=== PATIENT | female | born 1990 | race Hispanic/Latino ===

== ENCOUNTER 2020-05-23 13:30 | Inpatient (IN) | payer BC, MEDICAID ==
[~2020-05-23] VITALS: Ht 152.4 cm; Wt 85.9 kg
[2020-05-23] MEDS ORDERED: ONDANSETRON HCL 4 MG/2 ML VIAL ONE (14:01)
[2020-05-23] MEDS ORDERED: KETOROLAC TROMETHAMINE 30MG/ML ONE (14:02)
[2020-05-23 14:05] LABS: BASOPHILS % (AUTO) 0.1 % (0.0-5.0); EOSINOPHILS % (AUTO) 0.7 % (0.0-8.0); HEMATOCRIT 40.3 % (36-48); LYMPHOCYTES % (AUTO) 16.2 % (21.0-51.0); MEAN CORPUSCULAR HEMOGLOBIN 26.1 pg (27.0-33.0); MEAN CORPUSCULAR VOLUME 79.2 fL (79-99); MONOCYTES % (AUTO) 5.1 % (3.0-13.0); NEUTROPHILS % (AUTO) 77.4 % (40.0-77.0); PLATELET COUNT (AUTO) 281 K/uL (130-400); RED BLOOD CELL COUNT(AUTO) 5.09 MIL/uL (4.00-5.50); RED CELL DISTRIBUTION WIDTH 13.7 % (11.0-15.5); WHITE BLOOD COUNT (AUTO) 14.1 K/uL (4.8-10.8)
[2020-05-23 14:06] LABS: APPEARANCE,URINE CLEAR (CLEAR); BILIRUBIN,URINE NEGATIVE (NEGATIVE); COLOR,URINE YELLOW (YELLOW); GLUCOSE, URINE (UA) NEGATIVE (NEGATIVE); KETONES,URINE NEGATIVE (NEGATIVE); LEUKOCYTE ESTERASE ,URINE NEGATIVE (NEGATIVE); NITRATE,URINE NEGATIVE (NEGATIVE); OCCULT BLOOD,URINE NEGATIVE (NEGATIVE); PH,URINE 5.5 (5.0-8.0); PROTEIN,URINE TRACE mg/dL (NEGATIVE); UROBILINOGEN,URINE 0.2 mg/dL (0.2-1.0)
[2020-05-23 14:16] LABS: CREATININE 0.5 mg/dL (0.5-1.5); POTASSIUM 3.9 mmol/L (3.5-5.1)
[2020-05-23 14:19] LABS: BACTERIA,URINE Few /HPF (None Seen); RBC,URINE 0-1 /HPF (0-1); SQUAMOUS EPITHELIAL CELL,UR Few /HPF (0-2); WBC,URINE 0-1 /HPF (0-1)
[2020-05-23 14:21] LABS: BILIRUBIN,TOTAL 0.2 mg/dL (0.2-1.0); TOTAL PROTEIN, SERUM 8.4 g/dL (6.0-8.3)
[2020-05-23] MEDS ORDERED: ZOSYN 3.375GM+NS 50ML 50 ML IV ONE ×2 (15:40→22:31)
[2020-05-23] MEDS ORDERED: LACTULOSE 20 GM/30 ML UDCUP PO PRN (16:45)
[2020-05-23] MEDS ORDERED: ACETAMINOPHEN 325 MG TAB PO PRN ×2 (16:45)
[2020-05-23] MEDS ORDERED: MEPERIDINE-PF 50 MG/ML SYG IVP PRN (17:00)
[2020-05-23] MEDS ORDERED: MEPERIDINE-PF 25 MG/ML SYG ONE (18:41)
[2020-05-23] MEDS ORDERED: FAMOTIDINE/PF 20 MG/2 ML VIAL IV ONE (22:31)
[2020-05-24 04:20] VITALS: BP 134/76
[2020-05-24] MEDS: ZOSYN 3.375GM+NS 50ML 50 ML IV SCH ×4 (04:27→20:52)
[2020-05-24] MEDS: SODIUM CHLORIDE 0.9% 1000ML 1,000 ML IV SCH ×4 (04:27→20:53)
[2020-05-24] MEDS: FAMOTIDINE/PF 20 MG/2 ML VIAL IV SCH ×3 (04:27→20:51)
[2020-05-24] MEDS: INSULIN HUMULIN R 100 UNIT/ML 3ML SQ SCH ×4 (05:55→20:52)
[2020-05-24 06:14] LABS: BASOPHILS % (AUTO) 0.2 % (0.0-5.0); EOSINOPHILS % (AUTO) 1.3 % (0.0-8.0); HEMATOCRIT 35.8 % (36-48); LYMPHOCYTES % (AUTO) 22.7 % (21.0-51.0); MONOCYTES % (AUTO) 5.6 % (3.0-13.0); NEUTROPHILS % (AUTO) 69.7 % (40.0-77.0); PLATELET COUNT (AUTO) 257 K/uL (130-400); RED BLOOD CELL COUNT(AUTO) 4.53 MIL/uL (4.00-5.50); WHITE BLOOD COUNT (AUTO) 11.4 K/uL (4.8-10.8)
[2020-05-24 06:32] LABS: ALBUMIN 3.3 g/dL (3.5-5.0); BILIRUBIN,TOTAL 0.5 mg/dL (0.2-1.0); CREATININE 0.6 mg/dL (0.5-1.5); POTASSIUM 4.2 mmol/L (3.5-5.1)
[2020-05-24 08:51] VITALS: BP 131/74
[2020-05-24 12:00] VITALS: BP 139/92
--- NOTE | 2020-05-24 13:35 | NUR ---
MET WITH PATIENT AT BEDSIDE FOR D/C PLANNING [facility] LIVES WITH MARYANA AND TWO CHILDREN, BABY BORN 01[birth year]01/2022, [facility] HAS NO PCP, BUT CLINICAL DIRECTOR WAS MEGHANA DONALD. [facility] DOES NOT WANT PARTNER NEXT OF KIN ON FACE SHEET THEY ARE NOT , REAFFIRMS MOM ONLY NEXT OF KIN ON CHART. [facility] ACTIVE, INDEPENDENT, DRIVES, EMPLOYED, DCP HOME, BOYFRIEND TO PROVIDE TRANSPORT CM TO FOLLOW. FOR SURGERY IN AM Addendum: 05/24/20 at 1338 by MARIETTA RO RN CM Amended: Links added.
[2020-05-24 16:00] VITALS: BP 123/67
[2020-05-24 20:00] VITALS: BP 134/83
[2020-05-25] VITALS: BP 133/78
[2020-05-25 04:00] VITALS: BP 131/67
[2020-05-25] MEDS: ZOSYN 3.375GM+NS 50ML 50 ML IV SCH ×3 (04:43→21:03)
[2020-05-25] MEDS: INSULIN HUMULIN R 100 UNIT/ML 3ML SQ SCH ×4 (05:28→21:00)
[2020-05-25 06:00] LABS: BASOPHILS % (AUTO) 0.2 % (0.0-5.0); EOSINOPHILS % (AUTO) 1.6 % (0.0-8.0); HEMATOCRIT 35.7 % (36-48); LYMPHOCYTES % (AUTO) 24.2 % (21.0-51.0); MEAN CORPUSCULAR HEMOGLOBIN 25.7 pg (27.0-33.0); MEAN CORPUSCULAR HGB CONC 31.9 g/dL (32.0-36.0); MEAN CORPUSCULAR VOLUME 80.4 fL (79-99); MONOCYTES % (AUTO) 5.3 % (3.0-13.0); NEUTROPHILS % (AUTO) 68.2 % (40.0-77.0); PLATELET COUNT (AUTO) 256 K/uL (130-400); RED BLOOD CELL COUNT(AUTO) 4.44 MIL/uL (4.00-5.50); RED CELL DISTRIBUTION WIDTH 13.5 % (11.0-15.5); WHITE BLOOD COUNT (AUTO) 10.6 K/uL (4.8-10.8)
[2020-05-25 06:24] LABS: ALBUMIN 3.3 g/dL (3.5-5.0); BILIRUBIN,TOTAL 0.6 mg/dL (0.2-1.0); CREATININE 0.6 mg/dL (0.5-1.5); POTASSIUM 3.9 mmol/L (3.5-5.1); TOTAL PROTEIN, SERUM 6.9 g/dL (6.0-8.3)
[2020-05-25 08:00] VITALS: BP 111/72
[2020-05-25] MEDS: SODIUM CHLORIDE 0.9% 1000ML 1,000 ML IV SCH ×2 (08:45→16:48)
[2020-05-25] MEDS: FAMOTIDINE/PF 20 MG/2 ML VIAL IV SCH ×2 (09:22→21:03)
[2020-05-25 11:00] VITALS: BP 115/67
[2020-05-25 16:00] VITALS: BP 121/74
[2020-05-25 20:00] VITALS: BP 121/84
[2020-05-26] VITALS (28 sets, daily range): BP systolic 107–156; BP diastolic 64–88
[2020-05-26] MEDS: SODIUM CHLORIDE 0.9% 1000ML 1,000 ML IV SCH ×4 (00:10→21:34)
[2020-05-26] MEDS: ZOSYN 3.375GM+NS 50ML 50 ML IV SCH ×3 (04:48→21:15)
[2020-05-26 05:25] LABS: BASOPHILS % (AUTO) 0.2 % (0.0-5.0); EOSINOPHILS % (AUTO) 1.5 % (0.0-8.0); HEMATOCRIT 35.8 % (36-48); LYMPHOCYTES % (AUTO) 22.1 % (21.0-51.0); MEAN CORPUSCULAR HEMOGLOBIN 25.9 pg (27.0-33.0); MEAN CORPUSCULAR HGB CONC 32.7 g/dL (32.0-36.0); MEAN CORPUSCULAR VOLUME 79.2 fL (79-99); MONOCYTES % (AUTO) 5.6 % (3.0-13.0); NEUTROPHILS % (AUTO) 70.1 % (40.0-77.0); PLATELET COUNT (AUTO) 270 K/uL (130-400); RED BLOOD CELL COUNT(AUTO) 4.52 MIL/uL (4.00-5.50); RED CELL DISTRIBUTION WIDTH 13.4 % (11.0-15.5); WHITE BLOOD COUNT (AUTO) 10.1 K/uL (4.8-10.8)
[2020-05-26 06:01] LABS: ALBUMIN 3.2 g/dL (3.5-5.0); BILIRUBIN,TOTAL 0.5 mg/dL (0.2-1.0); CREATININE 0.6 mg/dL (0.5-1.5); POTASSIUM 3.5 mmol/L (3.5-5.1); TOTAL PROTEIN, SERUM 7.1 g/dL (6.0-8.3)
[2020-05-26] MEDS: INSULIN HUMULIN R 100 UNIT/ML 3ML SQ SCH ×4 (06:19→21:00)
[2020-05-26] MEDS: FAMOTIDINE/PF 20 MG/2 ML VIAL IV SCH ×2 (09:00→21:16)
[2020-05-26] MEDS ORDERED: BUPIVACAINE/PF 0.5% 30ML VIAL ONE (10:06)
[2020-05-26] MEDS ORDERED: SUCCINYLCHOLINE 200MG/10ML SYR ONE (10:18)
[2020-05-26] MEDS ORDERED: LIDOCAINE PF 2% 5ML ABBOJECT ONE (10:18)
[2020-05-26] MEDS ORDERED: ONDANSETRON HCL 4 MG/2 ML VIAL ONE (10:18)
[2020-05-26] MEDS ORDERED: GLYCOPYRROLATE 1 MG/5 ML SYRINGE ONE (10:18)
[2020-05-26] MEDS ORDERED: PROPOFOL 10 MG/ML 20ML VIAL IV ONE (10:19)
[2020-05-26] MEDS ORDERED: ROCURONIUM 10MG/1ML SYR 10 MG/ML ML ONE (10:19)
[2020-05-26] MEDS ORDERED: MIDAZOLAM HCL 1 MG/ML 2ML VIAL ONE (10:19)
[2020-05-26] MEDS ORDERED: FENTANYL CITRATE PF 50 MCG/1 ML 2ML VIAL ONE (10:19)
[2020-05-26] MEDS ORDERED: NEOSTIGMINE 5MG/5ML SYR IV ONE (10:19)
[2020-05-26] MEDS: SODIUM CHLORIDE 0.9% 1000ML 1,000 ML IV ONE (11:26)
[2020-05-26] MEDS: ONDANSETRON HCL 4 MG/2 ML VIAL IV PRN ×2 (11:57→21:30)
[2020-05-26] MEDS: MEPERIDINE-PF 25 MG/ML SYG IV PRN ×2 (12:06→12:25)
[2020-05-26] MEDS ORDERED: METOCLOPRAMIDE 10 MG/2 ML VIAL ONE (12:21)
[2020-05-26] MEDS ORDERED: ACETAMINOPHEN-CODEINE 300/30MG TAB PO PRN (13:45)
[2020-05-26] MEDS ORDERED: ONDANSETRON HCL 4 MG/2 ML VIAL IVP PRN (13:45)
[2020-05-27] VITALS: BP 127/70
[2020-05-27] MEDS: SODIUM CHLORIDE 0.9% 1000ML 1,000 ML IV SCH (04:29)
[2020-05-27] MEDS: ZOSYN 3.375GM+NS 50ML 50 ML IV SCH (04:29)
[2020-05-27 04:39] VITALS: BP 133/73
--- NOTE | 2020-05-27 05:10 | NUR ---
Patient transferred to room 310 via wheelchair. Vira RN given report on patient's status.
--- NOTE | 2020-05-27 05:10 | NUR ---
NOTE RECEIVED REPORT FROM SERGIO BEST. PATIENT WAS ORIENTED TO ROOM. CALL LIGHT WITHIN REACH. VOICES NO DISCOMFORTS, CONCERNS OR NEEDS AT THIS TIME. IVF AND ZOSYN INFUSING. IV SITE WITHOUT REDNESS/SWELLING NOTED.
[2020-05-27 05:33] LABS: BASOPHILS % (AUTO) 0.2 % (0.0-5.0); EOSINOPHILS % (AUTO) 0.3 % (0.0-8.0); LYMPHOCYTES % (AUTO) 18.8 % (21.0-51.0); MEAN CORPUSCULAR HEMOGLOBIN 25.8 pg (27.0-33.0); MEAN CORPUSCULAR HGB CONC 32.9 g/dL (32.0-36.0); MEAN CORPUSCULAR VOLUME 78.7 fL (79-99); MONOCYTES % (AUTO) 7.4 % (3.0-13.0); PLATELET COUNT (AUTO) 282 K/uL (130-400); RED BLOOD CELL COUNT(AUTO) 4.45 MIL/uL (4.00-5.50); RED CELL DISTRIBUTION WIDTH 13.2 % (11.0-15.5); WHITE BLOOD COUNT (AUTO) 9.4 K/uL (4.8-10.8)
[2020-05-27 06:08] LABS: ALBUMIN 3.3 g/dL (3.5-5.0); CREATININE 0.6 mg/dL (0.5-1.5); POTASSIUM 3.2 mmol/L (3.5-5.1); TOTAL PROTEIN, SERUM 7.1 g/dL (6.0-8.3)
[2020-05-27] MEDS: INSULIN HUMULIN R 100 UNIT/ML 3ML SQ SCH ×2 (06:43→11:30)
[2020-05-27 08:00] VITALS: BP 153/99
[2020-05-27] MEDS: FAMOTIDINE/PF 20 MG/2 ML VIAL IV SCH (09:00)
[2020-05-27] MEDS ORDERED: POTASSIUM CHLORIDE 20 MEQ ERTAB PO SCH (10:30)
[2020-05-27 13:20] VITALS: BP 135/86
--- NOTE | 2020-05-27 15:30 | NUR ---
THE PATIENT WAS DISCHARGED AT 1530 ON May. THE PATIENT WAS EDUCATED ON HEALTH HISTORY PROBLEMS SUCH HYPERTENSION AND INTERVENTIONS THAT CAN BE DONE TO HELP WITH HIGH BLOOD PRESSURE, SHE WAS ALSO EDUCATED ON DIABETES MELLITUS AND EXERCISES THAT CAN HELP WITH LOWERING BLOOD SUGARS AND THE TYPES OF FOOD THAT HELP WITH DIABETES. SHE WAS EDUCATED ON HER LAP KATHRIN AND TO MONITOR FOR SIGNS AND SYMPTOMS OF INFECTION (REDNESS, WARMTH, TENDERNESS, AND PAIN). THE PATIENTS POTASSIUM WAS AT 3.2 AND WAS COVERED WITH 40 MEQS (2 TABS) OF POTASSIUM AT 1030. THE PATIENT WAS MADE AWARE OF HER DOCTORS APPOINTMENT THAT WAS MADE WITH DR. SENA AND SCHEDULED FOR THE 8TH AT 230 IN THE AFTERNOON. THE PATIENTS IV WAS REMOVED AND INTACT. THE PATIENT UNDERSTOOD ALL DISCHARGE INSTRUCTIONS AND HAD NO FURTHER QUESTIONS. THE PATIENT WALKED DOWN WITH A ENVIRONMENTAL STUDIES PROFESSOR AND WAS ESCORTED TO HER VEHICLE SAFELY.
--- NOTE | 2020-05-28 14:38 | NUR ---
Transitional Care - Post Discharge Note Spoke with patient at number listed. As per Ms Valdes, she is doing well. She states she has a follow up with Dr Ornelas on June 06. She states no discharge medications ordered, and is managing her pain with OTC analgesics, as per her PCP recommendation. No complaints of severe pain reported. No N/V/D, SOB, fevers reported. Addendum: 05/28/20 at 1446 by YAZAN HALL Amended: Links added.
== END 2020-05-27 15:30 | disposition home or self-care (01) | DRG 419 ==
LOC: EDH 13:30 → EDHIP 16:38 → 4AH 05-24 04:20 → 3BH 05-27 04:59
PROVIDERS: ADMIT Hospitalist; ATTEND Hospitalist
PROC: 0FT44ZZ Resection of Gallbladder, Percutaneous Endoscopic Approach (ICD-10-PCS; principal; 2020-05-26 11:06)
DX: K80.00 Calculus of gallbladder with acute cholecystitis without obstruction (principal); E66.9 Obesity, unspecified; I10 Essential (primary) hypertension; E11.9 Type 2 diabetes mellitus without complications; K59.00 Constipation, unspecified; K76.0 Fatty (change of) liver, not elsewhere classified; Z68.37 Body mass index [BMI] 37.0-37.9, adult; Z86.32 Personal history of gestational diabetes
CPT/HCPCS: 36415; 76705; 80053; 81001; 81025; 82150; 82948; 83690; 85025; 87040; G0378; J0330; J1885; J2001; J2175; J2250; J2405; J2543; J2704; J2710; J2765; J3010; J3490; J7030

== ENCOUNTER 2021-05-04 20:54 | Emergency (ER) | payer BC, MEDICAID ==
[~2021-05-04] VITALS: Ht 152.4 cm; Wt 88.5 kg
[2021-05-04 21:43] VITALS: BP 153/82
[2021-05-04] MEDS ORDERED: PANTOPRAZOLE 40 MG/VIAL IVP ONE (22:00)
[2021-05-04] MEDS ORDERED: METOCLOPRAMIDE 10 MG/2 ML VIAL IVP ONE (22:00)
[2021-05-04] MEDS ORDERED: FAMOTIDINE 20MG VIAL IV ONE (22:00)
[2021-05-04] MEDS ORDERED: ONDANSETRON 4MG INJ IVP ONE (22:00)
[2021-05-04] MEDS ORDERED: 0.9%NACL 1000ML 1,000 ML IV ONE (22:00)
[2021-05-04] MEDS ORDERED: KETOROLAC 30MG VIAL (30MG/ML) IV ONE (22:00)
[2021-05-04 22:15] LABS: BASOPHILS % (AUTO) 0.2 % (0.0-5.0); EOSINOPHILS % (AUTO) 1.3 % (0.0-8.0); HEMATOCRIT 38.1 % (36-48); LYMPHOCYTES % (AUTO) 19.8 % (21.0-51.0); MEAN CORPUSCULAR HEMOGLOBIN 27.3 pg (27.0-33.0); MEAN CORPUSCULAR HGB CONC 33.3 g/dL (32.0-36.0); MEAN CORPUSCULAR VOLUME 81.8 fL (79-99); MONOCYTES % (AUTO) 4.3 % (3.0-13.0); NEUTROPHILS % (AUTO) 73.9 % (40.0-77.0); PLATELET COUNT (AUTO) 279 K/uL (130-400); RED BLOOD CELL COUNT(AUTO) 4.66 MIL/uL (4.00-5.50); RED CELL DISTRIBUTION WIDTH 13.1 % (11.0-15.5); WHITE BLOOD COUNT (AUTO) 16.2 K/uL (4.8-10.8)
[2021-05-04 22:26] LABS: CREATININE 0.8 mg/dL (0.5-1.5); POTASSIUM 3.5 mmol/L (3.5-5.1)
[2021-05-04 22:31] LABS: ALBUMIN 3.8 g/dL (3.5-5.0); BILIRUBIN,TOTAL 0.2 mg/dL (0.2-1.0); TOTAL PROTEIN, SERUM 7.8 g/dL (6.0-8.3)
[2021-05-04 23:22] LABS: APPEARANCE,URINE Cloudy (CLEAR); BILIRUBIN,URINE Negative (NEGATIVE); COLOR,URINE Yellow (YELLOW); GLUCOSE, URINE (UA) Negative (NEGATIVE); KETONES,URINE Negative (NEGATIVE); LEUKOCYTE ESTERASE ,URINE Small (NEGATIVE); NITRATE,URINE Negative (NEGATIVE); OCCULT BLOOD,URINE Negative (NEGATIVE); PROTEIN,URINE Negative (NEGATIVE); UROBILINOGEN,URINE 0.2 mg/dL (0.2-1.0)
[2021-05-04 23:25] LABS: HCG,QUAL RESULT NEGATIVE (NEGATIVE)
[2021-05-04 23:31] LABS: BACTERIA,URINE Few /HPF (None Seen); RBC,URINE None Seen /HPF (0-1); SQUAMOUS EPITHELIAL CELL,UR 0-2 /HPF (0-2)
[2021-05-04] MEDS ORDERED: IOHEXOL 350 MG/ML 100ML INFUS..BTL IV ONE (23:37)
[2021-05-05] MEDS ORDERED: DICY20TA2 PO (00:28)
[2021-05-05] MEDS ORDERED: ONDA4TAB10 PO (00:28)
[2021-05-05] MEDS ORDERED: METO-296 PO (00:28)
[2021-05-05] MEDS ORDERED: CEPH500B PO (00:28)
[2021-05-05] MEDS ORDERED: CEFTRIAXONE 1G VIAL IVP ONE (00:30)
[2021-05-05] MEDS ORDERED: CEFTRIAXONE 1G VIAL ONE (00:35)
== END 2021-05-05 00:45 | disposition home or self-care (01) ==
LOC: EDH 20:54
DX: N39.0 Urinary tract infection, site not specified (principal); E86.9 Volume depletion, unspecified; E11.9 Type 2 diabetes mellitus without complications; Z79.1 Long term (current) use of non-steroidal anti-inflammatories (NSAID); Z79.899 Other long term (current) drug therapy; Z98.890 Other specified postprocedural states
CPT/HCPCS: 36415; 74177; 80053; 81001; 81025; 83690; 85025; 87088; 96361; 96374; 96375 ×2; 99284; C9113; J0696; J1885; J2405; J2765; J3490; J7030; Q9967

== ENCOUNTER 2022-11-19 19:35 | Emergency (ER) | payer BC, MEDICAID ==
[~2022-11-19 19:35] MED LIST: CEPH500B PO; DICY20TA2 PO; METO-296 PO; ONDA4TAB10 PO
== END 2022-11-19 23:44 | disposition left against medical advice (07) ==
LOC: EDH 22:51
DX: R10.9 Unspecified abdominal pain (principal); Z53.21 Procedure and treatment not carried out due to patient leaving prior to being seen by health care provider